=== PATIENT | female | born 1980 | race Caucasian/White ===

== ENCOUNTER 2021-11-28 12:52 | Emergency (ER) | payer SELFPAY ==
[~2021-11-28] VITALS: Ht 170.2 cm; Wt 116.1 kg
--- NOTE | 2021-11-28 13:00 | NUR ---
bib [id number], c/o left ankle pain 4/10 pain scale from dancing, no deformities, aaox4, breathing even and unlabored, on active bleeding.
[2021-11-28] MEDS ORDERED: IBUP-1955 PO (13:12)
[2021-11-28 13:46] VITALS: BP 138/89
--- NOTE | 2021-11-28 13:46 | NUR ---
Patient discharged to home in stable condition. Written and verbal after care instructions given. Patient verbalizes understanding of instruction.
== END 2021-11-28 13:48 | disposition home or self-care (01) ==
LOC: ER 13:01
DX: S86.012A Strain of left Achilles tendon, initial encounter (principal); M76.62 Achilles tendinitis, left leg; Z88.2 Allergy status to sulfonamides; X50.1XXA Overexertion from prolonged static or awkward postures, initial encounter; Y93.41 Activity, dancing; Y92.252 Music hall as the place of occurrence of the external cause; Y99.8 Other external cause status